=== PATIENT | female | born 1990 | race Hispanic/Latino ===

== ENCOUNTER 2022-12-26 10:17 | Inpatient (IN) | payer MEDICAID, OTHER, SELFPAY ==
[2022-12-23 13:54] LABS: Hemoglobin 12.3 g/dL (12.0-15.5); Platelet Count 250 10x3/uL (150-450)
[2022-12-23 14:25] LABS: SARS-CoV-2 NAA Rapid Test Not Detected (NotDetected)
[2022-12-23 14:27] LABS: Syphilis Antibody Nonreactive (Nonreactive); Syphilis Antibody Index 0.05 S/CO (<1.00 Non-Reactive)
[2022-12-23 14:29] LABS: HBSAg Index 0.16 S/CO (0-0.99); Hep B Surf Ag Non-Reactive S/CO (NonReactive)
[2022-12-26] MEDS ORDERED: Docusate 100 MG CAP PO PRN (10:35)
[2022-12-26] MEDS ORDERED: hydrALAZINE 20 MG/ML VIAL SLOW IVP PRN ×2 (10:35→15:56)
[2022-12-26] MEDS ORDERED: Famotidine/PF 20 mg/2ml Vial SLOW IVP PRN (10:35)
[2022-12-26] MEDS ORDERED: Misoprostol 200 MCG TAB PR PRN (10:35)
[2022-12-26] MEDS ORDERED: Bicitra 30 ML UDCUP PO PRN (10:35)
[2022-12-26] MEDS ORDERED: Tranexamic Acid 1,000 MG in Sodium Chloride 0.9% 250 ML 250 ML IVPB PRN (10:35)
[2022-12-26] MEDS ORDERED: Promethazine HCl 25 MG/ML VIAL IM PRN ×2 (10:35→11:19)
[2022-12-26] MEDS ORDERED: Methylergonovine 0.2 MG/ML VIAL IM PRN (10:35)
[2022-12-26] MEDS ORDERED: Carboprost 250 MCG/ML AMP IM PRN (10:35)
[2022-12-26] MEDS ORDERED: Ondansetron PF 4 MG/2 ML Vial IVP PRN ×2 (10:35→11:19)
[2022-12-26] MEDS ORDERED: CEFAZOLIN 2 GM in Sodium Chloride 0.9% 100 ML IVPB SCH (10:45)
[2022-12-26] MEDS ORDERED: Lactated Ringer's 1,000 ML IV SCH (10:45)
[2022-12-26] MEDS ORDERED: NS w/ Oxytocin 30 units 500 ML IV SCH (10:45)
[2022-12-26] MEDS ORDERED: Fentanyl 100 MCG/2 ML VIAL SLOW IVP PRN (11:19)
[2022-12-26] MEDS ORDERED: Promethazine HCl 25 MG SUPP PR PRN (11:19)
[2022-12-26] MEDS ORDERED: Naloxone HCl 0.4 mg/ml Vial IV PRN (11:19)
[2022-12-26] MEDS ORDERED: HYDROmorphone 2 MG/ML VIAL SLOW IVP PRN (11:19)
[2022-12-26] MEDS ORDERED: Ketorolac Tromethamine 30 MG/ML VIAL IVP PRN (11:19)
[2022-12-26] MEDS ORDERED: Naloxone HCl 0.4 mg/ml Vial IVP PRN ×2 (11:19)
[2022-12-26] MEDS ORDERED: Meperidine HCl/PF 25 MG/ML VIAL SLOW IVP PRN (11:19)
[2022-12-26] MEDS ORDERED: diphenhydrAMINE 50 MG/ML VIAL IVP PRN (11:19)
[2022-12-26] MEDS ORDERED: Ondansetron HCl/PF 4 MG/2 ML Vial IVP PRN (11:19)
[2022-12-26] MEDS ORDERED: Moisturizing Cream (Eucerin) 113 GM JAR TOP PRN (11:19)
[2022-12-26] MEDS ORDERED: Oxytocin 10 UNITS/ML VIAL ONE ×2 (11:25→12:37)
[2022-12-26] MEDS ORDERED: Ondansetron PF 4 MG/2 ML Vial ONE (11:25)
[2022-12-26] MEDS ORDERED: Dexamethasone 4 mg/ml Vial ONE (11:25)
[2022-12-26] MEDS ORDERED: Fentanyl 100 MCG/2 ML VIAL ONE (11:25)
[2022-12-26] MEDS ORDERED: Morphine PF 10 MG/10 ML VIAL ONE (11:25)
[2022-12-26] MEDS ORDERED: Phenylephrine 10 MG/ML VIAL ONE (11:25)
[2022-12-26 11:26] VITALS: BMI 28.5
[2022-12-26] MEDS ORDERED: Communication Order-Pharmacy FS SCH (11:30)
[2022-12-26] MEDS ORDERED: Ketorolac Tromethamine 30 MG/ML VIAL IVP SCH (11:30)
[2022-12-26] MEDS ORDERED: Ketorolac Tromethamine 30 MG/ML VIAL ONE (15:53)
[2022-12-26] MEDS ORDERED: Boostrix 0.5 ML (Tdap) VIAL (>/=7 yrs of age) IM ONE (17:00)
[2022-12-26] MEDS ORDERED: HYDROcodone/Acetaminophen 5/325 mg Tablet PO PRN (23:30)
[2022-12-27] MEDS: Ibuprofen 800 MG TAB PO SCH ×4 (03:44→19:34)
[2022-12-27] MEDS: HYDROcodone/Acetaminophen 5/325 mg Tablet PO PRN ×2 (03:50→13:18)
[2022-12-27 05:13] LABS: Hemoglobin 10.7 g/dL (12.0-15.5); Mean Corpuscular HGB CONC 34.5 g/dL (32.0-36.0); Mean Corpuscular Hemoglobin 33.1 pg (27.0-33.0); Mean Platelet Volume 10.9 fl (7.4-10.4); Platelet Count 236 10x3/uL (150-450); RBC Distribution Width 12.3 % (11.5-14.5); Red Blood Cell (RBC) Count 3.23 10x6/uL (3.90-5.03); White Blood Cell (WBC) Count 11.6 10x3/uL (3.5-10.5)
[2022-12-27] MEDS: Prenatal Vitamin 1 TAB PO SCH (07:59)
[2022-12-27] MEDS: Simethicone Chewable 80 MG TAB PO PRN ×2 (13:19→19:35)
[2022-12-28] MEDS: HYDROcodone/Acetaminophen 5/325 mg Tablet PO PRN ×3 (01:41→13:45)
[2022-12-28] MEDS: Ibuprofen 800 MG TAB PO SCH ×2 (04:43→13:45)
[2022-12-28] MEDS: Prenatal Vitamin 1 TAB PO SCH (07:53)
[2022-12-28] MEDS: Simethicone Chewable 80 MG TAB PO PRN (07:57)
[2022-12-28 09:12] VITALS: BP 83/53; TEMP 98.4
== END 2022-12-28 17:30 | disposition home or self-care (01) | DRG 788 ==
LOC: CSHLD 10:17 → CSHPP 16:25
PROVIDERS: ADMIT Obstetrics & Gynecology; ATTEND Obstetrics & Gynecology
PROC: 10D00Z1 Extraction of Products of Conception, Low, Open Approach (ICD-10-PCS; principal; 2022-12-26)
DX: O32.1XX0 Maternal care for breech presentation, not applicable or unspecified (principal); Z37.0 Single live birth; Z3A.39 39 weeks gestation of pregnancy; Z20.822 Contact with and (suspected) exposure to COVID-19; O99.344 Other mental disorders complicating childbirth; O99.62 Diseases of the digestive system complicating childbirth; F32.A Depression, unspecified; K21.9 Gastro-esophageal reflux disease without esophagitis; K59.00 Constipation, unspecified; Z53.20 Procedure and treatment not carried out because of patient's decision for unspecified reasons; Z79.899 Other long term (current) drug therapy
CPT/HCPCS: 51702; 85014; 85018; 85027; 85049; 86780; 86850; 86900; 86901; 87340; J1100; J1885; J2274; J2370; J2405; J2590; J3010; J3490; U0002